=== PATIENT | male | born 1990 | race American Indian/Alaskan Native ===

== ENCOUNTER 2017-05-13 01:09 | Emergency (ER) | payer MEDICAID ==
[2017-05-13 01:17] VITALS: BP 143/72
[2017-05-13] MEDS ORDERED: XYLOCAINE 1% MPF 5 mL ONE (04:36)
[2017-05-13] MEDS ORDERED: XYLOCAINE 1% MPF 5 mL INFILTRATI ONE (04:41)
[2017-05-13] MEDS ORDERED: BOOSTRIX IM ONE (05:34)
--- NOTE | 2017-05-13 05:36 | Emergency Department Report ---
- General Chief Complaint: Laceration/Recheck/Suture Stated Complaint: RIGHT HAND LACERATION Time Seen by Provider: 05/13/17 04:41 Source: patient Mode of arrival: Ambulatory Limitations: No Limitations - History of Present Illness Initial Comments: 27 yo male was cutting steak and cut his right hand 5th digit on a knife. He c /o pain and bleeding. last tetanus 9 yrs ago -: Sudden, hour(s) (few) Location: other (right hand) Extremity Location: Right: Hand (5th digit) Place: home Patient Tetanus UTD: No (9 yrs ago) Context: accidental Associated Symptoms: pain Treatments Prior to Arrival: bandage - Related Data Previous Rx's Medication Instructions Recorded Last Taken Type Cephalexin [Keflex] 500 mg PO QID #28 capsule 05/13/17 Unknown Rx oxyCODONE /ACETAMINOPHEN [Percocet 1 tab PO Q6HR PRN #10 tablet 05/13/17 Unknown Rx 5/325] Allergies Allergy/AdvReac Type Severity Reaction Status Date / Time No Known Allergies Allergy Verified 05/13/17 04:35 ED Review of Systems ROS: Stated complaint: RIGHT HAND LACERATION Other details as noted in HPI Constitutional: denies: chills, fever Eyes: denies: eye pain, eye discharge, vision change ENT: denies: ear pain, throat pain Respiratory: denies: cough, shortness of breath, wheezing Cardiovascular: denies: chest pain, palpitations Endocrine: no symptoms reported Gastrointestinal: denies: abdominal pain, nausea, diarrhea Genitourinary: denies: urgency, dysuria Musculoskeletal: denies: back pain, joint swelling, arthralgia Skin: denies: rash, lesions Neurological: denies: headache, weakness, paresthesias Psychiatric: denies: anxiety, depression Hematological/Lymphatic: denies: easy bleeding, easy bruising ED Past Medical Hx - Past Medical History Previous Medical History?: No - Surgical History Past Surgical History?: No - Social History Smoking Status: Current Every Day Smoker Substance Use Type: Alcohol, Marijuana - Medications Home Medications: Home Medications Medication Instructions Recorded Confirmed Last Taken Type Cephalexin [Keflex] 500 mg PO QID #28 capsule 05/13/17 Unknown Rx oxyCODONE /ACETAMINOPHEN [Percocet 1 tab PO Q6HR PRN #10 tablet 05/13/17 Unknown Rx 5/325] ED Physical Exam - General Limitations: No Limitations General appearance: alert, in no apparent distress - Head Head exam: Present: atraumatic, normocephalic - Eye Eye exam: Present: normal appearance - ENT ENT exam: Present: mucous membranes moist - Neck Neck exam: Present: normal inspection - Respiratory Respiratory exam: Present: normal lung sounds bilaterally. Absent: respiratory distress - Cardiovascular Cardiovascular Exam: Present: regular rate, normal rhythm. Absent: systolic murmur, diastolic murmur, rubs, gallop - GI/Abdominal GI/Abdominal exam: Present: soft, normal bowel sounds - Rectal Rectal exam: Present: deferred - Extremities Exam Extremities exam: Present: normal inspection, full ROM, tenderness (right hand 5th digit stellate laceration, no tendon injury) - Back Exam Back exam: Present: normal inspection - Neurological Exam Neurological exam: Present: alert, oriented X3 - Psychiatric Psychiatric exam: Present: normal affect, normal mood - Skin Skin exam: Present: warm, dry, intact, normal color. Absent: rash ED Course Vital Signs 05/13/17 05/13/17 01:14 01:37 Temperature 98.2 F 98.2 F Pulse Rate 88 89 Respiratory 18 18 Rate Blood Pressure 143/72 143/72 O2 Sat by Pulse 99 98 Oximetry - Laceration /Wound Repair Right Hand Wound Location: upper extremity Wound Length (cm): 3 (stellate wound, no tendon injuty) Wound's Depth, Shape: irregular, flap, stellate Wound Explored: clean Irrigated w/ Saline (ccs): 250 Betadine Prep?: Yes Volume Anesthetic (ccs): 5 Wound Debrided: minimal Wound Repaired With: sutures Suture Size/Type: 4:0 Number of Sutures: 7 Layer Closure?: No Sterile Dressing Applied?: Yes Critical care attestation.: If time is entered above; I have spent that time in minutes in the direct care of this critically ill patient, excluding procedure time. ED Disposition Clinical Impression: Laceration Clinical Impression: (Ruled Out): Dehiscence of laceration repair Disposition: TO HOME OR SELFCARE Is pt being admited?: No Does the pt Need Aspirin: No Condition: Stable Instructions: Suture Care (ED), Laceration (ED) Additional Instructions: return in 2 days for a wound check or go to your doctor for a wound check. suture removal in 10-14 days Prescriptions: Cephalexin [Keflex] 500 mg PO QID #28 capsule oxyCODONE /ACETAMINOPHEN [Percocet 5/325] 1 tab PO Q6HR PRN #10 tablet PRN Reason: Pain Referrals: PRIMARY CARE, [Primary Care Provider] - 3-5 Days Time of Disposition: 05:34
== END 2017-05-13 05:45 | disposition home or self-care (01) ==
LOC: ED 01:09
DX: S61.216A Laceration without foreign body of right little finger without damage to nail, initial encounter (principal); W45.8XXA Other foreign body or object entering through skin, initial encounter; Y93.89 Activity, other specified; Y92.89 Other specified places as the place of occurrence of the external cause; Y99.8 Other external cause status; F17.200 Nicotine dependence, unspecified, uncomplicated; F12.10 Cannabis abuse, uncomplicated
CPT/HCPCS: 90471; 90715